=== PATIENT | female | born 1950 | race Caucasian/White ===

== ENCOUNTER 2016-12-08 15:48 | Inpatient (IN) ==
[2016-12-08] MEDS ORDERED: MIDAZOLAM 2 MG/2 ML VIAL ONE (16:26)
[2016-12-08] MEDS ORDERED: LIDOCAINE 1%/EPI INJ 20 ML VIAL ONE (16:26)
[2016-12-08] MEDS ORDERED: HEPARIN/NACL 0.9% 2 UNITS/ML 1,000 ML IV ONE (16:26)
[2016-12-08] MEDS ORDERED: fentaNYL 100 MCG/2 ML VIAL ONE (16:26)
[2016-12-08] MEDS ORDERED: HEPARIN/NACL 0.9% 2 UNITS/ML 500 ML IV ONE (16:28)
[2016-12-08] MEDS ORDERED: ALTEPLASE 2 MG VIAL ONE (16:45)
[2016-12-08] MEDS ORDERED: ALTEPLASE IV ONE ×2 (17:50→17:55)
[2016-12-08] MEDS ORDERED: LORazepam 2 MG/1 ML VIAL IV PRN (17:53)
[2016-12-08] MEDS ORDERED: ONDANSETRON 4 MG/2 ML VIAL IV PRN (17:53)
[2016-12-08] MEDS ORDERED: MORPHINE 2 MG/1 ML SYRINGE IV PRN (17:53)
--- NOTE | 2016-12-08 17:53 | Cardiology Operative Report ---
Date of Procedure:: 12/08/16 Pre-op diagnosis: Bilateral pulmonary thromboembolic disease with right ventricular enlargeme Post-op diagnosis: same Procedure: Clinical summary: 66-year-old lady who is in good general health presents with dyspnea lightheadedness chest heaviness palpitations found to have bilateral pulmonary thromboembolic disease when she presented at [facility] she is transferred here for EKOS catheter placement bilaterally as she has bilateral large pulmonary emboli with right ventricular enlargement suggesting right ventricular volume and pressure overload. Risks benefits and alternatives of the procedure have been reviewed with the patient. Description of procedure: Procedure performed: 1: Bilateral ekos catheter placement right and left pulmonary artery Description of procedure: After obtaining informed consent the patient was brought to the Oil Spraying Machine Operator with a right groin was prepped and draped in the usual sterile manner. After local infiltration of anesthetic and intravenous sedation a needle stick was made to the right femoral vein and a 12 [place] venous sheath with two hemostatic ports was placed in the right femoral vein. Using a angled pigtail catheter,a WIN graft catheter, a wholly wire and a J-wire the left main pulmonary artery was wired and the wire was extended to a segmental pulmonary artery on the left. This wire was maintained in place while the pigtail catheter was removed from the wire and an infusion catheter was advanced over the wire and positioned with its tip in a distal segmental pulmonary artery. This catheter was then connected to coolant infusion. Next using the other hemostatic access the Wholly wire was placed using the WIN graft catheter and positioned with its tip in a segmental right pulmonary artery. An infusion catheter was advanced over this wire and it was placed in the segmental right pulmonary artery. At this point tPA was infused in both the right and left drug ports. Next the ultrasound wires were placed through the coolant sheaths for both the right and left sides. Fluoroscopy confirmed good positioning and coolant was infusing as well as tPA. The patient remained hemodynamically stable and was transferred to the intensive care unit in stable condition. Please see the orders related to drug dosing and infusion sites. Surgeon / Physician: Austen Wallace Estimated blood loss: minimal Specimens: none sent Condition: stable
[2016-12-08] MEDS ORDERED: SODIUM CHLORIDE 0.9% 1,000 ML IV SCH ×2 (18:00)
[2016-12-08] MEDS ORDERED: ALTEPLASE 24 MG in SODIUM CHLORIDE 0.9% 480 ML IV SCH (18:00)
[2016-12-08] MEDS ORDERED: HEPARIN DRIP 25,000 UNITS/500 ML PREMIX IV SCH ×2 (18:00)
--- NOTE | 2016-12-08 18:07 | Cardiology History & Physical ---
Assessment and Plan (1) Pulmonary embolism with acute cor pulmonale Status: Acute Assessment and plan: The patient has undergone infusion catheter placement and is stable hemodynamically currently. (2) Systemic hypertension Status: Acute History of Present Illness Chief complaint: I am short of breath and lightheaded (bilateral pulmonary thromboembolic di History of present illness: Ms. Wang is a 66 year old female who presented to [facility] for evaluation this afternoon. She has a history of hypertension and presented with increasing dyspnea and chest discomfort. She had just been taken off her Mobic and lisinopril. She complains of palpitations and tightness in her chest. She was felt to have high risk for pulmonary thromboembolic disease and was taken to CT PA gram where it was found that she had bilateral pulmonary thromboembolic disease with right ventricular enlargement. I was called by Dr. Conner Newton and asked to consider performing EKOS catheter placement. Given the situation felt it was appropriately accepted the patient in transfer. She has now undergone a gross catheter placement without difficulty. She has a history of hypertension and has been started on Premarin by Dr. Justin Wallace recently. Otherwise she denies any history of fever chills cough or sputum she has had no syncope. She has felt lightheaded. She has not had problems related to abdominal pain or GI bleeding or history of bleeding issues. Allergies Allergy/AdvReac Type Severity Reaction Status Date / Time No Known Allergies Allergy Unverified 12/08/16 16:23 Cardiology Physical Exam - Constitutional Vitals: Intake and Output 12/08/16 12/08/16 12/08/16 07:59 15:59 23:59 Other: Weight 77.111 kg Patient Weight 12/08/16 23:59 Weight 77.111 kg General appearance: other Exam: Physical examination: General: The patient is awake and alert and oriented -3. Mood and affect are normal. HEENT: Normocephalic, sclera are clear there are no lid xanthelasmas noted. Oral mucosa is free of cyanosis or pallor. Neck: The neck is supple without JVD. Carotid upstrokes are normal volume and amplitude. There is no audible bruit. There is no palpable thyroid. Trachea is midline. Chest: Lungs: The patient is mildly dyspneic at rest without intercostal retractions or abdominal breathing. There are no adventitial sounds rales rubs rhonchi or wheezes noted. Cardiovascular: The PMI is nondisplaced. The second heart sound is prominent. There is no RV lift noted. No palpable thrill S3 or S4. There is a regular rate and rhythm with no murmur rub or gallop noted. Dorsalis pedis posterior tibial pulses are 1+ and equal and femoral pulses are 2+ and equal bilaterally. Abdomen: Abdomen is soft and nontender with normal active bowel sounds. There is no palpable mass or organomegaly noted. There is no midline bruit. Extremities exam: There is no cyanosis clubbing or edema. Skin: Skin is warm and dry without ecchymosis or urticaria or skin rash. There are no palpable nodules. Musculoskeletal: There is no kyphosis or scoliosis noted.
[2016-12-08] MEDS: SODIUM CHLORIDE 0.9% 1,000 ML IV SCH ×2 (18:18→18:19)
[2016-12-08] MEDS: SODIUM CHLORIDE 0.45% 1,000 ML IV SCH (18:56)
[2016-12-08 19:07] LABS: Basophils % 0.3 % (0.0-0.8); Eosinophils # 0.2 10*3/uL (0.0-0.87); Eosinophils % 1.8 % (0.00-10.9); Hematocrit 39.3 VOL% (35.7-47.0); Hemoglobin 13.8 GM/DL (12.0-16.0); Immature Granulocytes % 0.4 %; Immature Granulocytes Absolute 0.05 #; Lymphocytes # 2.7 10*3/uL (1.4-4.0); Lymphocytes % 22.1 % (21.3-54.2); Mean Corpuscular HGB Conc 35.1 GM/DL (32-36); Mean Corpuscular Hemoglobin 30 PG (27-34); Mean Corpuscular Volume 84.3 FL (87-102); Mean Platelet Volume 9.7 FL (9.6-12.0); Monocytes # 1.1 10*3/uL (0.11-0.8); Monocytes % 8.7 % (1.7-12.7); Neutrophils # 8.3 10*3/uL (1.4-7.4); Neutrophils % 66.7 % (38.7-73.9); Platelet Count 235 T/CUMM (130-400); Red Blood Count 4.66 MC/CUMM (3.8-5.5); Red Cell Distribution Width 12.9 % (9.3-17.3); White Blood Count 12.4 T/CUMM (4-12)
[2016-12-08 19:14] LABS: Apearance,Urine Slightly Hazy (Clear); Bilirubin,Urine Negative (Negative); Blood, Urine Negative (Negative); Glucose,Urine (UA) Negative (Negative); Ketones,Urine Negative (Negative); Mucus,Urine Occasional /LPF (Occasional); Nitrite,Urine Negative (Negative); Protein,Urine Negative; RBC,Urine <1 /HPF (0-4); Squamous Epithelial Cell,Urine Occasional /HPF (0-10); Urine Color Yellow (Yellow); Urine Specific Gravity 1.018 (1.001-1.035); Urine Urobilinogen < 2.0 EU/DL (0.2-1.0); WBC,Urine 1 /HPF (0-6)
[2016-12-08 19:19] LABS: Partial Thromboplastin Time 34.3 SECS (0-40)
[2016-12-09 03:30] LABS: INR 1.1; PT Patient Result 11.4 SECS
[2016-12-09 03:51] LABS: Albumin 2.8 G/DL (3.4-5.0); Bilirubin,Total 0.5 MG/DL (0.2-1.0); Calcium 7.9 MG/DL (8.5-10.1); Osmolality,Calculated 280.5 MOS/KG (273-304); Potassium 3.6 MMOL/L (3.5-5.1); Total Protein 5.6 G/DL (6.4-8.3)
--- NOTE | 2016-12-09 07:26 | EKG Report ---
Stationary ECG Study [facility] Test Date: 12/09/2016 7:27:36 AM Pat Name: ARPITA PIÑA Department: Room: 124 Gender: F Power Brake Rebuilder: ANGIE : 1950 Requested by: Austen Wallace Order Number: [id number] Reading MD: ANEUDY GO Intervals [place] Rate: 67 P: 29 WV: 188 QRS: 22 QRSD: 114 T: 51 QT: 459 QTc: 474 Interpretive Statements SINUS RHYTHM LOW QRS VOLTAGE IN PRECORDIAL LEADS POSSIBLE RIGHT VENTRICULAR CONDUCTION DELAY INFERIOR MYOCARDIAL INFARCTION, PROBABLY OLD MODERATE T-WAVE ABNORMALITY, CONSIDER ANTERIOR ISCHEMIA Electronically Signed On 12-09-16 18:59:23 CDT by ANEUDY GO [email or web address]
[2016-12-09 07:38] LABS: Partial Thromboplastin Time 39.9 SECS (0-40)
--- NOTE | 2016-12-09 08:35 | XRay Report ---
Exam: XR chest 1V portable Date: 12/09/2016 7:27 AM Indication: Pulmonary thromboemboli Comparison: None Technical: AP Findings: 2 catheters are present one in the right and left pulmonary artery. Cardiomegaly is present. External cardiac leads are present. No pneumothorax. Mediastinum is otherwise unremarkable. Previous cholecystectomy. Impression: 1. Borderline cardiac enlargement with pulmonary artery catheter is present right and left suspected history of pulmonary thromboemboli however I have no previous films available for review PROCEDURE INTERPRETED AT [facility] DEPARTMENT OF RADIOLOGY Final Report Signed by: Dr. Inocencio Ontiveros
[2016-12-09] MEDS: RIVAROXABAN 15 MG TABLET PO SCH ×3 (09:50→22:12)
[2016-12-09 12:25] LABS: Basophils # 0.1 10*3/uL (0.0-0.2); Basophils % 0.6 % (0.0-0.8); Eosinophils # 0.6 10*3/uL (0.0-0.87); Eosinophils % 6.5 % (0.00-10.9); Hematocrit 35.5 VOL% (35.7-47.0); Hemoglobin 12.2 GM/DL (12.0-16.0); Immature Granulocytes % 0.7 %; Immature Granulocytes Absolute 0.06 #; Lymphocytes % 22.7 % (21.3-54.2); Mean Corpuscular HGB Conc 34.4 GM/DL (32-36); Mean Corpuscular Hemoglobin 29 PG (27-34); Mean Corpuscular Volume 85.1 FL (87-102); Mean Platelet Volume 9.7 FL (9.6-12.0); Monocytes # 0.7 10*3/uL (0.11-0.8); Monocytes % 7.5 % (1.7-12.7); Neutrophils # 5.5 10*3/uL (1.4-7.4); Red Blood Count 4.17 MC/CUMM (3.8-5.5); Red Cell Distribution Width 13.1 % (9.3-17.3); White Blood Count 8.8 T/CUMM (4-12)
[2016-12-09 12:26] LABS: Platelet Count 181 T/CUMM (130-400)
--- NOTE | 2016-12-09 13:40 | Cardiology Progress Note ---
Law Brizuela Vanessa, RN, am scribing for, and in the presence of, Kristofer Diamond MD 13:40. Assessment and Plan - Time spent with patient Time spent with patient: Greater than 30 minutes (1) Pulmonary embolism with acute cor pulmonale Status: Acute Assessment and plan: 66 year old F, PMHx HTN and hysterectomy. Recently started on Premarin ITEM PROCESSING CLERK with discontinuation of Mobic and lisinopril. Admitted to [facility] on 12/08 with acute extensive bilateral pulmonary emboli, RV enlargement after experiencing chest discomfort, increasing dyspnea, and palpitations since 12/05. Underwent EKOS catheter placed of left and right pulmonary artery with thrombolytic therapy. 1. BILATERAL PULMONARY EMBOLI with acute cor pulmonale evidenced by significant RV enlargement being present. Remained hemodynamically stable and is now status post bilateral pulmonary artery EKOS catheter therapy with TPA administration. Yesterday 2. Continue Xarelto 15 mg PO twice daily starting today. Will need to stay off hormones, as this seems to be her only clear risk factor for PE 3. Echocardiogram pending today. 4. HYPERTENSION-chronic. Well controlled at this time. 5. We will ask General Magistrate to pull right femoral vein 12 Azeri sheath per Current Visit: Yes Qualifiers: Pulmonary embolism type: saddle (2) Systemic hypertension Status: Chronic Assessment and plan: SEE PLAN OF CARE LISTED ABOVE. Current Visit: Yes Cardiology - PN: Subj Interval history: NEUROPSYCHIATRIST: DR. WALLACE (NEW) SUMMARY: Ms. Wang, 66 year old F, PMHx of hypertension. Was recently started on Premarin by ITEM PROCESSING CLERK, and her Mobic and lisinopril had recently been stopped. Admitted in transfer from [facility] on the evening of December 08 after presenting with dyspnea, chest discomfort, and palpitations since last . At [place], CT of chest with extensive bilateral PE and RV enlargement. After arrival to [facility] was taken to laborer wharf the same evening for EKOS catheter placement of right and left pulmonary artery with thrombolytic therapy. Patient was transferred back to CCU for close observation overnight. Vitals and EKG stable. 2016: No acute changes overnight. Heparin and and IV fluids completed earlier this morning. EKOS catheter removed earlier this morning per Dr. Wallace. Sinus rhythm, HR 60s, no disturbance. SBP 120-140 mmHg. CBC pending this morning. No dyspnea or chest discomfort. Exam (Progress Note) - Constitutional Vitals: Period Temp Pulse Resp BP Sys/Zarate Pulse Ox Last 24 Hr 97.6 F-98.4 F 65-103 12-24 102-141/57-81 95-99 Exam: General: The patient is awake and alert and oriented -3. Mood and affect are normal. HEENT: Normocephalic, sclera are clear there are no lid xanthelasmas noted. Oral mucosa is free of cyanosis or pallor. Neck: The neck is supple without JVD. Carotid upstrokes are normal volume and amplitude. There is no audible bruit. There is no palpable thyroid. Trachea is midline. Chest: Lungs: The patient is mildly dyspneic at rest without intercostal retractions or abdominal breathing. There are no adventitial sounds rales rubs rhonchi or wheezes noted. Cardiovascular: The PMI is nondisplaced. The second heart sound is prominent. There is no RV lift noted. No palpable thrill S3 or S4. There is a regular rate and rhythm with no murmur rub or gallop noted. Dorsalis pedis posterior tibial pulses are 1+ and equal and femoral pulses are 2+ and equal bilaterally. Abdomen: Abdomen is soft and nontender with normal active bowel sounds. There is no palpable mass or organomegaly noted. There is no midline bruit. Extremities exam: There is no cyanosis clubbing or edema. Skin: Skin is warm and dry without ecchymosis or urticaria or skin rash. There are no palpable nodules. Musculoskeletal: There is no kyphosis or scoliosis noted. Result/EKG - Labs CBC & BMP: 12/09/16 12:11 12/09/16 02:17 Lab Results: I have reviewed the past 24 hour labs Labs: Laboratory Results - last 24 hr 12/08/16 12/08/16 12/08/16 19:04 19:04 19:07 WBC 12.4 H RBC 4.66 Hgb 13.8 Hct 39.3 MCV 84.3 L MCH 30 MCHC 35.1 RDW 12.9 Plt Count 235 MPV 9.7 Neut % (Auto) 66.7 Lymph % (Auto) 22.1 [place] % (Auto) 8.7 Eos % (Auto) 1.8 Baso % (Auto) 0.3 Neut # (Auto) 8.3 H Lymph # (Auto) 2.7 [place] # (Auto) 1.1 H Eos # (Auto) 0.2 Baso # (Auto) 0.0 Immature Gran % 0.4 Nucleated RBC % 0.0 Immature Gran # 0.05 Nucleated RBCs # 0.00 Immature Plt Fraction 0.0 INR 1.0 PT Patient/Control Mix 11.0 Fibrinogen 230 Circ Anticoag PTT 34.3 Sodium Potassium Chloride Carbon Dioxide Anion Gap BUN Creatinine GFR Calculation BUN/Creatinine Ratio Glucose Calculated Osmolality Calcium Total Bilirubin AST ALT Alkaline Phosphatase Total Protein Albumin Globulin Albumin/Globulin Ratio Urine Color Yellow Urine Appearance Slightly hazy Urine pH 6.0 Ur Specific [place] 1.018 Urine Protein Negative Urine Glucose (UA) Negative Urine Ketones Negative Urine Blood Negative Urine Nitrate Negative Urine Bilirubin Negative Urine Urobilinogen < 2.0 H Urine Leukocytes Negative Urine RBC <1 Urine WBC 1 Ur Squamous Epith Cells Occasional Urine Mucus Occasional Ur Culture Indicated? Not indicated 12/09/16 12/09/16 12/09/16 02:17 02:17 02:17 WBC RBC Hgb Hct MCV MCH MCHC RDW Plt Count MPV Neut % (Auto) Lymph % (Auto) [place] % (Auto) Eos % (Auto) Baso % (Auto) Neut # (Auto) Lymph # (Auto) [place] # (Auto) Eos # (Auto) Baso # (Auto) Immature Gran % Nucleated RBC % Immature Gran # Nucleated RBCs # Immature Plt Fraction INR 1.1 PT Patient/Control Mix 11.4 Fibrinogen Circ Anticoag PTT 41.9 H D Sodium 139 Potassium 3.6 Chloride 106 Carbon Dioxide 25 Anion Gap 11.6 BUN 20 H Creatinine 1.30 H GFR Calculation 54 BUN/Creatinine Ratio 15.00 Glucose 110 H Calculated Osmolality 280.5 Calcium 7.9 L Total Bilirubin 0.50 AST 29 ALT 20 Alkaline Phosphatase 76 Total Protein 5.6 L Albumin 2.8 L Globulin 2.8 Albumin/Globulin Ratio 1.0 L Urine Color Urine Appearance Urine pH Ur Specific [place] Urine Protein Urine Glucose (UA) Urine Ketones Urine Blood Urine Nitrate Urine Bilirubin Urine Urobilinogen Urine Leukocytes Urine RBC Urine WBC Ur Squamous Epith Cells Urine Mucus Ur Culture Indicated? 12/09/16 07:03 WBC RBC Hgb Hct MCV MCH MCHC RDW Plt Count MPV Neut % (Auto) Lymph % (Auto) [place] % (Auto) Eos % (Auto) Baso % (Auto) Neut # (Auto) Lymph # (Auto) [place] # (Auto) Eos # (Auto) Baso # (Auto) Immature Gran % Nucleated RBC % Immature Gran # Nucleated RBCs # Immature Plt Fraction INR PT Patient/Control Mix Fibrinogen 227 Circ Anticoag PTT 39.9 Sodium Potassium Chloride Carbon Dioxide Anion Gap BUN Creatinine GFR Calculation BUN/Creatinine Ratio Glucose Calculated Osmolality Calcium Total Bilirubin AST ALT Alkaline Phosphatase Total Protein Albumin Globulin Albumin/Globulin Ratio Urine Color Urine Appearance Urine pH Ur Specific [place] Urine Protein Urine Glucose (UA) Urine Ketones Urine Blood Urine Nitrate Urine Bilirubin Urine Urobilinogen Urine Leukocytes Urine RBC Urine WBC Ur Squamous Epith Cells Urine Mucus Ur Culture Indicated? - Diagnostic Findings Procedure: Chest x-ray: image reviewed by me, report reviewed by me (: Borderline cardiac enlargement) - EKG EKG results: interpreted by me, no acute changes EKG shows: sinus rhythm Dara Brizuela Randall Scott, MD, personally performed the services described in this documentation, ascribed by Leonila Foy RN in my presence, and it is both accurate and complete [id number] .
--- NOTE | 2016-12-09 17:49 | ECHO Report ---
KathleenMarina Exam Date: 12/09/2016 13:18 Referring Physician: Technologist: Alyssa Romero Age: 66 Ht (in): 66 Wt (lb): 170 Gender: F Exam Location: [facility] Echo Indications: HTN, acute embolism with acute cor pulmonale BP: 118 / 61 HR: 78 Rhythm: Sinus Technical Quality: Technically difficult study IMPRESSIONS Left ventricular ejection fraction is estimated at 55 % with no regional wall motion abnormality. Mild concentric left ventricular hypertrophy with Grade I diastolic dysfunction. Tricuspid regurgitation velocities suggest a RVSP of 21 mmHg + RAP. MEASUREMENTS (Male / Female) Normal Values 2D ECHO LV Diastolic Diameter PLAX 4.2 cm 4.2 - 5.9 / 3.9 - 5.3 cm LV Systolic Diameter PLAX 2.5 cm LV Fractional Shortening PLAX 40.6 % IVS Diastolic Thickness 1.2 cm 0.6 - 1.0 / 0.6 - 0.9 cm LVPW Diastolic Thickness 1.3 cm 0.6 - 1.0 / 0.6 - 0.9 cm Aortic Root Diameter 2.6 cm LA Systolic Diameter LX 3.4 cm 3.0 - 4.0 / 2.7 - 3.8 cm DOPPLER TR Peak Velocity 235.0 cm/s TR Peak Gradient 22.1 mmHg FINDINGS Left Ventricle Normal left ventricular cavity size. Mild concentric left ventricular hypertrophy with Grade I diastolic dysfunction. Left ventricular ejection fraction is estimated at 55 % with no regional wall motion abnormality. Right Ventricle The right ventricle is mildly enlarged Right Atrium Normal right atrial size. Left Atrium Normal left atrial size. Mitral Valve Morphologically normal mitral valve. Aortic Valve The aortic valve is trileaflet and has normal motion. Tricuspid Valve Morphologically normal tricuspid valve. Trace tricuspid valve regurgitation. Tricuspid regurgitation velocities suggest a RVSP of 21 mmHg + RAP. Pulmonic Valve Morphologically normal pulmonic valve. Pericardium No pericardial effusion. Aorta Normal size aortic root and proximal ascending aorta. Martha Carbajal (Electronically Signed) Final Date: 09 December 2016 17:48
[2016-12-09] MEDS: SODIUM CHLORIDE 0.9% 1,000 ML IV SCH ×2 (19:32)
[2016-12-09] MEDS: SODIUM CHLORIDE 0.45% 1,000 ML IV SCH (19:32)
--- NOTE | 2016-12-10 06:53 | EKG Report ---
Stationary ECG Study [facility] Test Date: 12/10/2016 6:52:08 AM Pat Name: ARPITA PIÑA Department: Room: 124 Gender: F Lead Medical Technologist: JAYASHREE : 1950 Requested by: Austen Wallace Order Number: [id number] Reading MD: REID THOMPSON Intervals [place] Rate: 71 P: 51 MS: 200 QRS: -12 QRSD: 89 T: 30 QT: 427 QTc: 449 Interpretive Statements SINUS [id number] MILD NST Electronically Signed On 12-13-16 16:45:44 CDT by REID THOMPSON [email or web address]
[2016-12-10 08:24] LABS: Partial Thromboplastin Time 34.7 SECS (0-40)
[2016-12-10 08:36] LABS: Calcium 8.4 MG/DL (8.5-10.1); Magnesium 2.5 MG/DL (1.8-2.4); Osmolality,Calculated 276.7 MOS/KG (273-304); Potassium 3.8 MMOL/L (3.5-5.1)
[2016-12-10 08:36] LABS: Basophils # 0.1 10*3/uL (0.0-0.2); Basophils % 0.8 % (0.0-0.8); Eosinophils # 0.6 10*3/uL (0.0-0.87); Eosinophils % 6.4 % (0.00-10.9); Hematocrit 36.3 VOL% (35.7-47.0); Hemoglobin 12.6 GM/DL (12.0-16.0); Immature Granulocytes % 1.3 %; Immature Granulocytes Absolute 0.12 #; Lymphocytes # 1.8 10*3/uL (1.4-4.0); Lymphocytes % 19.8 % (21.3-54.2); Mean Corpuscular HGB Conc 34.7 GM/DL (32-36); Mean Corpuscular Hemoglobin 30 PG (27-34); Mean Corpuscular Volume 87.5 FL (87-102); Mean Platelet Volume 9.8 FL (9.6-12.0); Monocytes # 0.7 10*3/uL (0.11-0.8); Neutrophils # 5.8 10*3/uL (1.4-7.4); Neutrophils % 63.7 % (38.7-73.9); Platelet Count 175 T/CUMM (130-400); Red Blood Count 4.15 MC/CUMM (3.8-5.5); Red Cell Distribution Width 12.9 % (9.3-17.3); White Blood Count 9.1 T/CUMM (4-12)
[2016-12-10] MEDS: RIVAROXABAN 15 MG TABLET PO SCH (08:59)
[2016-12-10] MEDS ORDERED: PNEUMOCOCCAL VACCINE (13 VALENT) 0.5 ML SYRINGE IM ONE (09:00)
[2016-12-10 10:03] VITALS: BP 134/61
--- NOTE | 2016-12-10 10:27 | Discharge Summary ---
Law Brizuela Vanessa, RN, am scribing for, and in the presence of, Kristofer Diamond MD 10:27. 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 Wang, 66 year old WF, PMHx of hypertension. Was recently started on Premarin by [employer], and her Mobic and lisinopril had recently been stopped. Admitted in transfer from [facility] on the evening of December 08 after presenting with dyspnea, chest discomfort, and palpitations since last . At [place], CT of chest with extensive bilateral PE and RV enlargement. After arrival to [facility] was taken to hospital laboratory technician the same evening for EKOS catheter placement of right and left pulmonary artery with thrombolytic therapy. Patient closely observed in CCU. Vitals and EKG stable post procedure. Symptoms resolved completely. Xarelto 15 mg PO twice daily initiated on afternoon of 12/09. Echo on 11/29 with mild LVH, EF 55%, mild diastolic dysfunction, PA P 21 mmHg, and mildly enlarged right ventricle. Labs are stable. She has not had any bleeding issues. This morning, patient is without complaint. She is getting up out of bed, ambulating without difficulty. Right groin procedure site area is soft with no bruising or bruit. At this time, patient is felt to have met maximum hospital benefit. Groin precautions and resuming activity gradually and as tolerated were discussed with Ms. Wang. Patient will also be discharged home with prescription for Xarelto 15 mg PO twice daily. Discussed importance of taking this medication without fail, take with food, and doses approximately 12 hours apart. Will not resume Premarin at discharge. Questions answered, verbalizes understanding. Will follow up with Dr. Wallace at [facility] in 2 weeks with EKG, CBC, BMP, FLP. Addendum: Of discussed with his age and her need to take her Xarelto with food twice daily nearly 12 hours apart. She is to avoid squatting strain or lifting for the next 3 days. I discussed with her the importance of getting it taken her Xarelto without fail. She is to contact the office if she has any trouble getting her medication. - Time spent with patient Time with patient DS: Greater than 30 minutes Diagnosis - Discharge Diagnosis (1) Pulmonary embolism with acute cor pulmonale Status: Resolved (2) Systemic hypertension Status: Chronic Specialty Discharge - Follow Up or Referrals Follow up with: Austen Wallace MD [Physician] - 2 Weeks (Follow up with Dr. Wallace at [facility] in 2 weeks with EKG, CBC, BMP, FLP.) Discharge Plan - Discharge Data Disposition: Disch To Home/Self Care Condition at Discharge: Stable Discharge Diet: advance to your usual diet, heart healthy Activity: resume usual activities as tolerated, other (groin precautions ) Hygiene: may shower, keep area(s) dry Weight Bearing at Discharge: full weight bearing Contact your physician if you experience:: fever over 101, Difficulty voiding, Redness or swelling, Nausea/Vomiting, Shortness of breath, Bleeding, pain uncontrolled by pain medications - Discharge Medications New Rivaroxaban [Xarelto] 15 mg PO BID W/MEALS #60 tablet Continue Triamterene/Hctz 75-50 Tab [Maxzide 75-50] 1 tablet PO DAILY Discontinued Meloxicam 15 mg PO DAILY Lisinopril 10 mg PO DAILY Estrogens, Conjugated [Premarin] 1.25 mg PO DAILY - Follow Up or Referral Follow Up: Austen Wallace MD [Physician] - 2 Weeks (Follow up with Dr. Wallace at [facility] in 2 weeks with EKG, CBC, BMP, FLP.) - Forms/Instructions Exam - Constitutional Vitals: Period Temp Pulse Resp BP Sys/Zarate Pulse Ox Last 24 Hr 96.6 F-99.1 F 65-82 12-20 115-154/54-70 92-99 Exam: General: Pleasant and cooperative. Obese. No acute distress. HEENT: Normocephalic, sclera are clear there are no lid xanthelasmas noted. Oral mucosa is free of cyanosis or pallor. Neck: No JVD or bruit. Carotid upstrokes are normal volume and amplitude. No tenderness.Trachea is midline. Chest: Lungs: Lungs clear to auscultation bilaterally. No rhonchi, wheeze, rales, stridor. No supplemental oxygen required. Cardiovascular: The PMI is nondisplaced. The second heart sound is prominent. There is no RV lift noted. No palpable thrill S3 or S4. There is a regular rate and rhythm with no murmur rub or gallop noted. Abdomen: Abdomen is soft and nontender with normal active bowel sounds. There is no palpable mass or organomegaly noted. No pulsations or bruits. Extremities exam: There is no cyanosis, clubbing, diaphoresis, or edema. Bilateral upper and lower extremity pulses present and palpable. Skin: Skin is warm and dry without ecchymosis or urticaria or skin rash. There are no palpable nodules. No suspicious lesion. Musculoskeletal: There is no kyphosis or scoliosis noted. Able to move all extremities well. Psych: Normal affect and mood. Patient does not appear to be anxious or depressed. Neuro: Alert and oriented 3. Grossly intact. No resting tremor. Discharge Results Procedures and tests throughout hospitalization: Pending Orders 12/08/16 16:23 CL heart Stat 12/10/16 18:00 Fibrinogen Q12H Partial Thromboplastin Time Q12H 12/11/16 06:00 Fibrinogen Q12H Partial Thromboplastin Time Q12H 12/11/16 18:00 Fibrinogen Q12H Partial Thromboplastin Time Q12H Labs on day of discharge: Labs from last 24 hours 12/10/16 12/10/16 12/10/16 08:16 07:44 07:44 WBC 9.1 RBC 4.15 Hgb 12.6 Hct 36.3 MCV 87.5 MCH 30 MCHC 34.7 RDW 12.9 Plt Count 175 MPV 9.8 Neut % (Auto) 63.7 Lymph % (Auto) 19.8 L Sheridan % (Auto) 8.0 Eos % (Auto) 6.4 Baso % (Auto) 0.8 Neut # (Auto) 5.8 Lymph # (Auto) 1.8 Sheridan # (Auto) 0.7 Eos # (Auto) 0.6 Baso # (Auto) 0.1 Immature Gran % 1.3 Nucleated RBC % 0.0 Immature Gran # 0.12 Nucleated RBCs # 0.00 Immature Plt Fraction Fibrinogen 282 Circ Anticoag PTT 34.7 Sodium 138 Potassium 3.8 Chloride 104 Carbon Dioxide 30 Anion Gap 7.8 BUN 19 H Creatinine 1.10 H GFR Calculation 66 BUN/Creatinine Ratio 17.00 Glucose 98 Calculated Osmolality 276.7 Calcium 8.4 L Magnesium 2.5 H 12/09/16 12/09/16 18:32 12:11 WBC 8.8 RBC 4.17 Hgb 12.2 Hct 35.5 L MCV 85.1 L MCH 29 MCHC 34.4 RDW 13.1 Plt Count 181 D MPV 9.7 Neut % (Auto) 62.0 Lymph % (Auto) 22.7 Sheridan % (Auto) 7.5 Eos % (Auto) 6.5 Baso % (Auto) 0.6 Neut # (Auto) 5.5 Lymph # (Auto) 2.0 Sheridan # (Auto) 0.7 Eos # (Auto) 0.6 Baso # (Auto) 0.1 Immature Gran % 0.7 Nucleated RBC % 0.0 Immature Gran # 0.06 Nucleated RBCs # 0.00 Immature Plt Fraction 0.0 Fibrinogen 237 Circ Anticoag PTT 39.0 Sodium Potassium Chloride Carbon Dioxide Anion Gap BUN Creatinine GFR Calculation BUN/Creatinine Ratio Glucose Calculated Osmolality Calcium Magnesium - Imaging and Cardiology Cardiology Procedure: image reviewed by me, report reviewed by me DS: Provider Attending physician on admission: Jet Diamond MD Discharging clinician: Jet Diamond MD Expected date of discharge: 12/10/16 Dara Brizuela Randall Scott, MD, personally performed the services described in this documentation, ascribed by Leonila Foy RN in my presence, and it is both accurate and complete 027 .
== END 2016-12-10 11:05 | disposition home or self-care (01) | DRG 163 ==
LOC: N.CC 17:53
PROVIDERS: ADMIT Internal Medicine Interventional Cardiology; ATTEND Internal Medicine Interventional Cardiology

== ENCOUNTER 2021-05-30 14:18 | Observation (INO) ==
[2021-05-30] MEDS ORDERED: ACETAMINOPHEN 325 MG TABLET PO PRN (14:55)
[2021-05-30] MEDS ORDERED: DOCUSATE SODIUM 100 MG CAPSULE PO PRN (14:55)
[2021-05-30] MEDS ORDERED: ZALEPLON 5 MG CAPSULE PO PRN (14:55)
[2021-05-30] MEDS ORDERED: diphenhydrAMINE CAP 25 MG CAPSULE PO PRN (14:55)
[2021-05-30] MEDS ORDERED: POTASSIUM CHLORIDE 20 MEQ TABLET PO PRN (14:55)
[2021-05-30] MEDS ORDERED: hydrALAZINE 20 MG/1 ML VIAL IV PRN (14:55)
[2021-05-30] MEDS ORDERED: MAGNESIUM SULF RIDER 4 GM/100 ML PREMIX IV PRN (14:55)
[2021-05-30] MEDS ORDERED: PROMETHAZINE 25 MG TABLET PO PRN (14:55)
[2021-05-30] MEDS ORDERED: guaiFENesin/DM ER 600-30 MG TABLET PO PRN (14:55)
[2021-05-30] MEDS ORDERED: MAGNESIUM SULF RIDER 2 GM/50 ML PREMIX IV PRN (14:55)
[2021-05-30] MEDS ORDERED: ONDANSETRON 4 MG/2 ML VIAL IV PRN (14:55)
[2021-05-30] MEDS: RIVAROXABAN 15 MG TABLET PO SCH (18:33)
[2021-05-30] MEDS: ALBUTEROL 2.5 MG/3 ML NEB RESP TX SCH (18:52)
[2021-05-30] MEDS ORDERED: SIMVASTATIN 10 MG TABLET PO SCH (21:00)
[2021-05-30] MEDS: GABAPENTIN 300 MG CAPSULE PO SCH (21:34)
[2021-05-31] MEDS: ALBUTEROL 2.5 MG/3 ML NEB RESP TX SCH ×2 (00:39→08:01)
[2021-05-31 04:20] LABS: Basophils # 0.1 10*3/uL (0.0-0.2); Basophils % 0.7 % (0.0-0.8); Eosinophils # 0.6 10*3/uL (0.0-0.87); Eosinophils % 6.4 % (0.00-10.9); Hemoglobin 14.1 GM/DL (12.0-16.0); Immature Granulocytes % 0.3 %; Immature Granulocytes Absolute 0.03 #; Lymphocytes # 2.5 10*3/uL (1.4-4.0); Lymphocytes % 28.3 % (21.3-54.2); Mean Corpuscular HGB Conc 33.6 GM/DL (32-36); Mean Corpuscular Volume 85.7 FL (87-102); Mean Platelet Volume 9.5 FL (9.6-12.0); Monocytes % 10.1 % (1.7-12.7); Neutrophils % 54.2 % (38.7-73.9); Platelet Count 247 T/CUMM (130-400); Red Cell Distribution Width 12.9 % (9.3-17.3); White Blood Count 8.8 T/CUMM (4-12)
[2021-05-31 04:37] LABS: Calcium 8.6 MG/DL (8.5-10.1); Osmolality,Calculated 282.5 MOS/KG (273-304); Potassium 3.3 MMOL/L (3.5-5.1)
[2021-05-31 08:10] VITALS: BP 146/53
[2021-05-31] MEDS: GABAPENTIN 300 MG CAPSULE PO SCH (08:51)
[2021-05-31] MEDS: RIVAROXABAN 15 MG TABLET PO SCH (08:52)
[2021-05-31] MEDS ORDERED: PANTOPRAZOLE 40 MG TABLET PO SCH (09:00)
[2021-05-31] MEDS ORDERED: LOSARTAN 50 MG TABLET PO SCH (09:00)
[2021-05-31] MEDS ORDERED: MULTIVITAMIN (CENTRUM) TABLET PO SCH (09:00)
[2021-05-31] MEDS ORDERED: TRIAMTERENE/HCTZ 37.5-25 MG TABLET PO SCH (09:00)
== END 2021-05-31 10:33 | disposition home or self-care (01) ==
LOC: N.CT 14:18 → N.TELEN 14:18
PROVIDERS: ADMIT Internal Medicine Interventional Cardiology; ATTEND Internal Medicine Interventional Cardiology